=== PATIENT | female | born 1945 | race Caucasian/White ===

== ENCOUNTER 2019-03-09 13:42 | Emergency (ER) | payer OTHER ==
[~2019-03-09] VITALS: Ht 167.6 cm; Wt 77.1 kg
[~2019-03-09 13:42] MED LIST: ACET-1156 PO; ALUM1SUS PO; APIX2.5T PO; ARTISOL13 EACHEYE; B-CO1TAB22 PO; BISA-4 PR; CARV12.544 PO; CHOL20007 PO; DIPH12.537 PO; DOCU100T15 PO; DULO20CA PO; HYDR-2691 PO; LACT10SO3 PO; LINA145C PO; LOPE2TAB78 PO; MAGN400S25 PO; OMEP20TA PO; ONDA-144 PO; OXYC325T14 PO; PROM25TA5 PO; ROSU5TAB5 PO; SEVE800T10 PO
[2019-03-09 14:52] LABS: Basophils # (auto) 0 uL; Basophils % (auto) 0.9 % (0.0-2.0); Eosinophils # (auto) 0.2 uL; Eosinophils % (auto) 4.3 % (0.0-7.0); Hematocrit 28.6 % (36.0-46.0); Hemoglobin 9.4 g/dL (12.2-16.2); Lymphocytes # (auto) 0.9 uL; Lymphocytes % (auto) 20.4 % (10.0-50.0); Mean Corpuscular Hemoglobin 32.1 pg (28.0-32.0); Mean Corpuscular Hgb Conc. 32.9 g/dL (32.0-36.0); Mean Corpuscular Volume 97.5 fL (80.0-100.0); Monocytes # (auto) 0.3 uL; Monocytes % (auto) 7.1 % (0.0-12.0); Neutrophils # (auto) 2.9 uL; Neutrophils % (auto) 67.3 % (37.0-80.0); Platelet Count (auto) 186 10^3/uL (140-450); Red Blood Cells 2.94 10^6/uL (4.0-5.20); Red Cell Distribution Width 18.2 % (11.8-14.3); White Blood Cell 4.4 10^3/uL (4.4-10.8)
[2019-03-09 15:00] LABS: Calcium 6.3 mg/dL (8.5-10.1); Potassium 4.1 mmol/L (3.5-5.1)
[2019-03-09 15:03] LABS: Bilirubin, Total 0.2 mg/dL (0.2-1.0); Total Protein 6.1 g/dL (6.4-8.2)
[2019-03-09] MEDS ORDERED: CALCIUM CARB 500 MG CHEW TAB PO ONE (16:45)
[2019-03-09 17:01] VITALS: BP 149/62
== END 2019-03-09 18:23 | disposition home or self-care (01) ==
LOC: EDBD 13:42 → ER 13:42
DX: E11.22 Type 2 diabetes mellitus with diabetic chronic kidney disease (principal); I12.0 Hypertensive chronic kidney disease with stage 5 chronic kidney disease or end stage renal disease; N18.6 End stage renal disease; E78.5 Hyperlipidemia, unspecified; R41.82 Altered mental status, unspecified; G45.9 Transient cerebral ischemic attack, unspecified; E83.51 Hypocalcemia; D64.9 Anemia, unspecified; Z86.73 Personal history of transient ischemic attack (TIA), and cerebral infarction without residual deficits; Z90.49 Acquired absence of other specified parts of digestive tract; Z90.710 Acquired absence of both cervix and uterus; Z88.6 Allergy status to analgesic agent; Z79.899 Other long term (current) drug therapy
CPT/HCPCS: 36415; 70450; 80053; 85025; 93005